=== PATIENT | male | born 1965 | race Caucasian/White ===

== ENCOUNTER 2021-11-18 06:11 | Day surgery (SDC) | payer OTHER, SELFPAY ==
[2021-11-12 15:36] VITALS: BMI 21.9
--- NOTE | 2021-11-15 09:26 | MHC.SHP ---
Pre-Procedural Eval Section A Date of Service: 11/15/21 The patient is an INPATIENT: No Changes since office visit: No Cold of Flu in the past 2 weeks, No New Medical Problems, No Changes in Medication and No Patient answered all questions The History & Physical has been completed within 30 days and I have reviewed it.: Yes Section B Chief Complaint: Age-related nuclear cataract, right eye Allergies: Allergies Allergy/AdvReac Type Severity Reaction Status Date / Time ibuprofen Allergy Itching Verified 11/14/21 12:23 Plan Diagnosis/Plan: Unchanged I have reviewed the history and physical and performed a pertinent physical examination on my patient. No changes have occurred unless specified.
[2021-11-18 06:28] VITALS: BP 169/79; PULSE 48; RESP 16; TEMP 36.4; O2SAT 97
[2021-11-18] MEDS: Tetracaine HCl/PF 0.5% Oph Sol 4 ML DROPS 1 DROP EYE-RIGHT (06:31)
[2021-11-18] MEDS: Tropicamide 1 % Ophth Sol 3 ML BTL 1 DROP EYE-RIGHT ×3 (06:32→06:44)
[2021-11-18] MEDS: Phenylephrine HCL 2.5% Oph SoL 2 ML BOTTLE 1 DROP EYE-RIGHT ×3 (06:33→06:45)
[2021-11-18] MEDS: Lactated Ringers 500 ML 50 ML IVCONT (06:45)
--- NOTE | 2021-11-18 06:47 | PC.NURSE ---
after iv insertion patient became anxious and diaphoretic. denies dizziness and chest pain. applied cool clothes to neck and forehead. cont to monitor.
--- NOTE | 2021-11-18 07:07 | HO.ANESPROP2 ---
HPI - Anesthesia Eval Consult details Narrative: Right eye cataract [facility] Past Medical History Medical History (Updated 11/12/21 @ 15:41 by Linda Cervantes, RN) Cataract DDD (degenerative disc disease), lumbar Seasonal allergies Situational anxiety Family History Family history of problems with anesthesia: No Surgical History Surgical History (Updated 11/12/21 @ 15:34 by Linda Cervantes RN) History of oral surgery Hx of adenoidectomy Hx of colonoscopy History of Problems with Anesthesia: No Social History Social History Are you a primary healthcare financial analyst to a significant other at home: No Do you presently have visiting nurse or other home services: No Patient Tobacco Use Status: Former Tobacco user Quit Date: 1989 Tobacco use type: Cigarette Use of substances other than those prescribed or required for medical reasons: No Have you been hit, kicked, punched, or otherwise hurt by someone within the past year? If so, by whom?: No Are you DNR?: No Advance Directives: No Advance Directives Information Provided: Yes Advance Directives on File: No Meds Allergies Allergy/AdvReac Type Severity Reaction Status Date / Time ibuprofen Allergy Itching Verified 11/14/21 12:23 Active Medications: Current Medications Lactated Ringer's (Lr) 500 mls @ 50 mls/hr IVCONT .Q10H CHRYSTAL Povidone Iodine (Povidone Iodine 5 % Ophth Soln 30 Ml Bottle) 1 appl EYE-RIGHT PREOP PRN PRN Reason: Pre-Op Surgical Implant Prophy Home Medications Medication Instructions Recorded Confirmed Last Taken Type triamcinolone acetonide 55 mcg INTRANASAL PRN 11/12/21 11/12/21 Unknown History nasal spray aerosol (Nasacort Allergy) Exam Exam Date and Time: November 18, 2021 0707 Height,Weight and Vital Signs: Height 5 ft 11.5 in Weight 72.575 kg Last Vital Signs Temp 97.6 F 11/18/21 06:28 Pulse 48 L 11/18/21 06:28 Resp 16 11/18/21 06:28 BP 169/79 H 11/18/21 06:28 Pulse Ox 97 11/18/21 06:28 Airway Mallampati Class: II TM Dist: >3cm Neck ROM: Full Loose/Missing/Broken Teeth: No Heart: rrr+s1s2 Lungs: cta b/l Assessment and Plan Assessment Anesthesia Assessment: Anesthesia Plan Discussed and Chart Reviewed Final Anesthetic Review Family History of Problems with Anesthesia: No History of Problems with Anesthesia: No NPO: Yes ASA Class: II Final Preanesthetic Review: No Changes in Pt Med Stat, Meds/Allgs Chart Reviewed, Consent Obtained/Reviewed and Anes Risks/Benef Reviewed Patient Risk: Intermediate Procedure Risk: Low Assessment/Block/Sedation in SS: Assess/Block/Sedation-SS Anesthetic Plan Anesthetic Plan: MAC: and Agree w/ Assess. and Plan Disposition: Standard PACU
--- NOTE | 2021-11-18 07:23 | HO.PNOPHT ---
Ophthalmology Procedure Procedure Date of Service: 11/18/21 Ophthalmology Viscoelastic: Healon Duet Dual Pack Pro Ophthalmology Lenses: TECNIS XCB00 (8.5) Procedure Notes: PREOPERATIVE DIAGNOSIS: Decreased visual acuity right eye secondary to cataract POSTOPERATIVE DIAGNOSIS: Same PROCEDURE: Right cataract extraction with intraocular lens insertion SURGEON: Dakotah Cavazos M.D. ANESTHESIA: Topical/MAC ESTIMATED BLOOD LOSS: None COMPLICATIONS: None After obtaining informed consent, the patient was brought to the operating room suite and placed in the supine position. After adequate sedation per anesthesia, topical drops of Tetracaine were given to the right eye. The eye was then prepped and draped in the usual sterile fashion. The operating room microscope was then positioned over the operative eye and a lid speculum placed. A paracentesis was created. Viscoelastic was then instilled into the anterior chamber. A three plane incision was then created temporally, utilizing a 2.85 mm keratome. Capsulotomy forceps were then utilized to create a circular tear capsulotomy. Hydrodissection and hydrodelineation were carried out until adequate mobilization of the nucleus occurred. Phacoemulsification was then utilized to remove the dense central nucleus followed by removal of the cortical material utilizing the automated aspiration irrigation unit. Viscoelastic was instilled into the posterior capsular bag followed by placement of a posterior chamber intraocular lens without difficulty. The residual Viscoelastic was then removed utilizing the automated IA machine. The wound was checked and found to be watertight. The patient tolerated the procedure well and the lid speculum was removed. Intracameral injection of Vigamox 0.1 mL followed by a subtenon injection of Kenalog-40 0.2 mL were administered. The patient will be seen in the a.m.
[2021-11-18 07:49] VITALS: BP 151/90; PULSE 59; RESP 18; TEMP 36.4; O2SAT 98
== END 2021-11-18 08:12 | disposition home or self-care (01) ==
PROVIDERS: PCP Nurse Practitioner Family; Visit Provider Ophthalmology
PROC: (CPT 66985; principal; 2021-11-18 07:30)
DX: H25.11 Age-related nuclear cataract, right eye (principal); H35.361 Drusen (degenerative) of macula, right eye; H52.13 Myopia, bilateral; J30.2 Other seasonal allergic rhinitis; Z79.51 Long term (current) use of inhaled steroids; Z87.891 Personal history of nicotine dependence; Z88.8 Allergy status to other drugs, medicaments and biological substances
CPT/HCPCS: 66984; J2250; J3010; J3300; V2632

== ENCOUNTER 2021-11-25 06:14 | Day surgery (SDC) | payer OTHER, SELFPAY ==
[2021-11-12 15:39] VITALS: BMI 21.9
--- NOTE | 2021-11-22 08:12 | P.CONAN_ITS ---
Documented by User: Catie Cantu NP 11/22/21 08:13 HPI - Anesthesia Eval Consult details Narrative: 56yo M for Left Cataract Extraction IOL Insertion PCP cleared Right eye done 11/19/21 with MAC: Fent 50, Midaz 2 [facility] Past Medical History Medical History (Updated 11/12/21 @ 15:41 by Linda Cervantes, ALANA) Cataract DDD (degenerative disc disease), lumbar Seasonal allergies Situational anxiety Family History Family history of problems with anesthesia: No Surgical History Surgical History (Updated 11/12/21 @ 15:34 by Linda Cervantes RN) History of oral surgery Hx of adenoidectomy Hx of colonoscopy History of Problems with Anesthesia: No Social History Social History Are you a primary home health care respiratory therapist to a significant other at home: No Do you presently have visiting nurse or other home services: No Patient Tobacco Use Status: Former Tobacco user Quit Date: 1989 Tobacco use type: Cigarette Use of substances other than those prescribed or required for medical reasons: No Are you DNR?: No Advance Directives: No Advance Directives Information Provided: Yes Advance Directives on File: No Meds Allergies Allergy/AdvReac Type Severity Reaction Status Date / Time ibuprofen Allergy Itching Verified 11/14/21 12:23 Home Medications Medication Instructions Recorded Confirmed Last Taken Type triamcinolone acetonide 55 mcg INTRANASAL PRN 11/12/21 11/12/21 Unknown History nasal spray aerosol (Nasacort Allergy) Exam Exam Date and Time: November 22, 2021 0812 Height,Weight and Vital Signs: Height 5 ft 11.5 in Weight 72.575 kg Assessment and Plan Assessment Anesthesia Assessment: Chart Reviewed Final Anesthetic Review Family History of Problems with Anesthesia: No History of Problems with Anesthesia: No Documented by User: Darnell Merchant MD 11/25/21 07:33 [facility] Past Medical History Medical History (Updated 11/12/21 @ 15:41 by Linda Cervantes RN) Cataract DDD (degenerative disc disease), lumbar Seasonal allergies Situational anxiety Surgical History Surgical History (Updated 11/12/21 @ 15:34 by Linda Cervantes RN) History of oral surgery Hx of adenoidectomy Hx of colonoscopy Social History Social History Are you a primary home health care respiratory therapist to a significant other at home: No Do you presently have visiting nurse or other home services: No Patient Tobacco Use Status: Former Tobacco user Quit Date: 1989 Tobacco use type: Cigarette Use of substances other than those prescribed or required for medical reasons: No Are you DNR?: No Advance Directives: No Advance Directives Information Provided: Yes Advance Directives on File: No Meds Allergies Allergy/AdvReac Type Severity Reaction Status Date / Time ibuprofen Allergy Itching Verified 11/14/21 12:23 Home Medications Medication Instructions Recorded Confirmed Last Taken Type triamcinolone acetonide 55 mcg INTRANASAL PRN 11/12/21 11/12/21 Unknown History nasal spray aerosol (Nasacort Allergy) Exam Airway Mallampati Class: II TM Dist: >3cm Neck ROM: Full Loose/Missing/Broken Teeth: No Heart: rrr+s1s2 Lungs: cta b/l Assessment and Plan Assessment Anesthesia Assessment: Anesthesia Plan Discussed Final Anesthetic Review NPO: Yes ASA Class: II Final Preanesthetic Review: No Changes in Pt Med Stat, Meds/Allgs Chart Reviewed, Consent Obtained/Reviewed and Anes Risks/Benef Reviewed Patient Risk: Intermediate Procedure Risk: Low Assessment/Block/Sedation in SS: Assess/Block/Sedation-SS Anesthetic Plan Anesthetic Plan: MAC: and Agree w/ Assess. and Plan Disposition: Standard PACU
--- NOTE | 2021-11-22 11:28 | MHC.SHP ---
Pre-Procedural Eval Section A Date of Service: 11/22/21 The patient is an INPATIENT: No Changes since office visit: No Cold of Flu in the past 2 weeks, No New Medical Problems, No Changes in Medication and No Patient answered all questions The History & Physical has been completed within 30 days and I have reviewed it.: Yes Section B Chief Complaint: Age-related nuclear cataract, left eye Allergies: Allergies Allergy/AdvReac Type Severity Reaction Status Date / Time ibuprofen Allergy Itching Verified 11/14/21 12:23 Plan Diagnosis/Plan: Unchanged I have reviewed the history and physical and performed a pertinent physical examination on my patient. No changes have occurred unless specified.
[2021-11-25 06:26] VITALS: BP 152/83; PULSE 63; RESP 18; TEMP 37.1; O2SAT 99
[2021-11-25] MEDS: Tetracaine HCl/PF 0.5% Oph Sol 4 ML DROPS 1 DROP EYE-LEFT (06:34)
[2021-11-25] MEDS: Tropicamide 1 % Ophth Sol 3 ML BTL 1 DROP EYE-LEFT ×3 (06:35→06:40)
[2021-11-25] MEDS: Phenylephrine HCL 2.5% Oph SoL 2 ML BOTTLE 1 DROP EYE-LEFT ×3 (06:36→06:41)
--- NOTE | 2021-11-25 07:27 | HO.PNOPHT ---
Ophthalmology Procedure Procedure Date of Service: 11/25/21 Ophthalmology Viscoelastic: Healon Duet Dual Pack Pro Ophthalmology Lenses: TECNIS XCB00 (7) Procedure Notes: PREOPERATIVE DIAGNOSIS: Decreased visual acuity left eye secondary to cataract POSTOPERATIVE DIAGNOSIS: Same PROCEDURE: Left cataract extraction with intraocular lens insertion SURGEON: Dakotah Cavazos M.D. ANESTHESIA: Topical/MAC ESTIMATED BLOOD LOSS: None COMPLICATIONS: None After obtaining informed consent, the patient was brought to the operation room suite and placed in the supine position. After adequate sedation per anesthesia, topical drops of Tetracaine were given to the left eye. The eye was then prepped and draped in the usual sterile fashion. The operating room microscope was then positioned over the operative eye and a lid speculum placed. A paracentesis was created. Viscoelastic was then instilled into the anterior chamber. A three plane incision was then created temporally, utilizing a 2.85 mm keratome. Capsulotomy forceps were then utilized to create a circular tear capsulotomy. Hydrodissection and hydrodelineation were carried out until adequate mobilization of the nucleus occurred. Phacoemulsification was then utilized to remove the dense central nucleus followed by removal of the cortical material utilizing the automated aspiration irrigation unit. Viscoat elastic was instilled into the posterior capsular bag followed by placement of a posterior chamber intraocular lens without difficulty. The residual Viscoat elastic was then removed utilizing the automated IA machine. The wound was check and found to be watertight. The patient tolerated the procedure well and the lid speculum was removed. Intracameral injection of Vigamox 0.1 mL followed by a subtenon injection of Kenalog-40 0.2 mL were administered. The patient will be seen in the a.m.
[2021-11-25] MEDS: Lactated Ringers 500 ML 50 ML IV (07:28)
[2021-11-25 08:02] VITALS: BP 137/75; PULSE 61; RESP 18; TEMP 36.7; O2SAT 98
== END 2021-11-25 08:07 | disposition home or self-care (01) ==
PROVIDERS: PCP Nurse Practitioner Family; Visit Provider Ophthalmology
PROC: (CPT 66985; principal; 2021-11-25 07:30)
DX: H25.12 Age-related nuclear cataract, left eye (principal); H52.13 Myopia, bilateral; J30.2 Other seasonal allergic rhinitis; Z79.51 Long term (current) use of inhaled steroids; Z88.8 Allergy status to other drugs, medicaments and biological substances; F17.200 Nicotine dependence, unspecified, uncomplicated
CPT/HCPCS: 66984; J2250; J3010; J3300; V2632